=== PATIENT | female | born 1970 | race Caucasian/White ===

== ENCOUNTER 2016-04-01 19:01 | Emergency (ER) | payer BC ==
[2016-04-01 19:17] VITALS: PULSE 89; RESP 20; TEMP 98.2
[2016-04-01] MEDS ORDERED: PROPARACAINE 0.5% OPHTH DROPS 15 ML BTL BOTH EYES STA (19:30)
--- NOTE | 2016-04-01 19:46 | ED ---
Eye Problem HPI - General Chief complaint: Eye Problems Stated complaint: RT EYE PAIN, SENT BY CLINIC Time Seen by Provider: 04/01/16 19:11 Source: patient, RN notes reviewed Mode of arrival: ambulatory Limitations: no limitations - History of Present Illness Initial comments: Patient is a 45-year-old female presents to the emergency room for evaluation of right eye pressure. Patient states she began having right eye pressure for the past 2 weeks. Patient states she was having blurriness of vision while taking Chantix a few months ago. Patient states she discontinued taking Chantix around [place] time and the blurriness of vision has subsided. Patient states that she continues to have the pressure behind her right eye. Patient denies any changes in vision or pain in her right eye. Patient denies any recent changes in medications. Patient states she takes thyroid medication and hormone medication. Patient does states she has a family history of glaucoma. Patient denies headache, dizziness, ear pain, nausea, vomiting. - Related Data Home Medications Medication Instructions Recorded Confirmed Thyroid,Pork [Nature-Throid] 48.75 mg PO DAILY 05/28/14 04/01/16 ALPRAZolam [Xanax] 0.5 mg PO TID PRN 04/23/15 04/01/16 Aspirin [Adult Low Dose Aspirin EC] 81 mg PO DAILY 04/23/15 04/01/16 Cholecalciferol [Vitamin D3] 5,000 unit PO DAILY 04/23/15 04/01/16 Estradiol [Estradiol] 1 mg PO DAILY 04/23/15 04/01/16 Multivitamins, Thera [Multivitamin] 1 tab PO DAILY 04/23/15 04/01/16 [place]-3 Fatty Acids/Fish Oil [Fish 1 - 2 each PO DAILY 04/23/15 04/01/16 Oil 1,000 mg Softgel] Progesterone,Micronized 100 mg PO DAILY 04/23/15 04/01/16 [Progesterone] Vitamin B Complex 1 each PO DAILY 04/23/15 04/01/16 Vitamin B12 Packet (Unknown Dose) 1 applic PO DAILY 04/23/15 04/01/16 oxyCODONE-APAP 10-325MG [Percocet 1 tab PO QID 04/23/15 04/01/16 10-325 mg] Previous Rx's Medication Instructions Recorded HYDROcodone/APAP 5-325MG [[place] 5] 1 - 2 each PO Q4H PRN #20 tab 04/28/15 Amoxicillin/Potassium Clav 1 each PO Q12HR #20 tab 04/01/16 [Augmentin 875-125 Tablet] Allergies Allergy/AdvReac Type Severity Reaction Status Date / Time No Known Allergies Allergy Verified 04/01/16 19:14 Review of Systems ROS Statement: Those systems with pertinent positive or pertinent negative responses have been documented in the HPI. ROS Other: All systems not noted in ROS Statement are negative. Past Medical History Past Medical History: GERD/Reflux, Hyperlipidemia, Hypertension, Thyroid Disorder Additional Past Medical History / Comment(s): HX STOMACH ULCER, ENDOMETRIOSIS, CONSTIPATION AND DIARRHEA., HAVING ABDOMINAL PAINS History of Any Multi-Drug Resistant Organisms: None Reported Past Surgical History: Bowel Resection, Hysterectomy, Uterine Ablation Additional Past Surgical History / Comment(s): EGD. D & C. LYSIS OF ADHESIONS. BILAT OOPHORECTOMY Past Anesthesia/Blood Transfusion Reactions: No Reported Reaction Additional Past Anesthesia/Blood Transfusion Reaction / Comment(s): MOTHER=PONV Past Psychological History: Anxiety Smoking Status: Current every day smoker Past Alcohol Use History: Occasional Additional Past Alcohol Use History / Comment(s): SMOKES 1PPD. SMOKING FOR 20 YEARS Past Drug Use History: None Reported - Past Family History Mother Family Medical History: No Reported History General Exam - General Exam Comments Initial Comments: Sitting in exam room, no acute distress. Limitations: no limitations General appearance: alert, in no apparent distress Head exam: Present: atraumatic, normocephalic, normal inspection Eye exam: Present: normal appearance, PERRL, EOMI Pupils: Present: normal accommodation Expanded Eyelids: Normal Inspection: Bilateral Pupils: Regular, Round: Bilateral Sclera/Conjunctival: Normal Inspection: Bilateral Visual acuity (R) = 20/: 20 Visual acuity (L) = 20/: 50 IOP (R) in mmH IOP (L) in mmH IOP measured with: [facility] ENT exam: Present: normal exam, mucous membranes moist, TM's normal bilaterally , normal external ear exam, other (Pain/pressure on palpating over right maxillary sinus) Neck exam: Present: normal inspection Respiratory exam: Present: normal lung sounds bilaterally. Absent: respiratory distress Cardiovascular Exam: Present: regular rate, normal rhythm, normal heart sounds Extremities exam: Present: normal inspection Back exam: Present: normal inspection Neurological exam: Present: alert, oriented X3, CN II-XII intact, normal gait Psychiatric exam: Present: normal affect, normal mood Skin exam: Present: warm, dry, intact, normal color. Absent: rash Course Vital Signs 04/01/16 04/01/16 19:14 19:52 Temperature 98.2 F Pulse Rate 89 Respiratory 20 Rate Blood Pressure 195/113 170/100 O2 Sat by Pulse 97 Oximetry Medical Decision Making - Medical Decision Making Patient is a 45-year-old female presents to the emergency room for evaluation of right eye pressure. Patient's IOP with tonometer is within normal limits on bilateral eyes. Patient's pressure more related to sinus pressure. Will place patient on antibiotics for sinusitis. I did advise patient to follow up with finished cloth checker for reevaluation next week. Patient also noted to have increased blood pressure while she was here. Patient declined blood pressure medications. It was explained to patient the increased risk of stroke or heart attack. Patient states she understands and still declined blood pressure medication. Patient states she will follow-up with her primary care provider regarding high blood pressure. Patient states she will return for any concerning symptoms. Case discussed with Dr. Hobbs. Disposition Clinical Impression: Sinus pressure, High blood pressure Disposition: HOME SELF-CARE Condition: Good Instructions: Sinusitis (ED) Additional Instructions: Take antibiotics as directed. Please follow up with finished cloth checker on Monday for reevaluation. Please follow up with primary care provider next week for further evaluation of blood pressure. If any new symptom arises, symptoms worsen or fever develops, return to ER as soon as possible. Prescriptions: Amoxicillin/Potassium Clav [Augmentin 875-125 Tablet] 1 each PO Q12HR #20 tab Referrals: Patrick Haywood MD [Primary Care Provider] - 1-2 days Elsie Duron MD [STAFF PHYSICIAN] - 1-2 days Time of Disposition: 20:14
[2016-04-01 19:52] VITALS: BP 170/100
[2016-04-01] MEDS ORDERED: cloNIDine HCL 0.1 MG TAB PO STA (20:04)
== END 2016-04-01 20:24 | disposition home or self-care (01) ==
LOC: EC 19:01
DX: J32.9 Chronic sinusitis, unspecified (principal); R03.0 Elevated blood-pressure reading, without diagnosis of hypertension; Z83.511 Family history of glaucoma; F17.200 Nicotine dependence, unspecified, uncomplicated; E07.9 Disorder of thyroid, unspecified; F41.9 Anxiety disorder, unspecified; Z79.82 Long term (current) use of aspirin; Z79.899 Other long term (current) drug therapy
CPT/HCPCS: 99283

== ENCOUNTER → 2016-04-05 | Outpatient (CLI) | payer BC ==
[2016-04-05 10:16] LABS: CH 33.1; CHCM 33.2; HCT 49.7 % (34.0-46.0); HDW 2.33; MCH 32.3 pg (25.0-35.0); MCHC 32.3 g/dL (31.0-37.0); MCV 100.2 fL (80.0-100.0); Mean Platelet Volume 7.9; RBC 4.96 m/uL (3.80-5.40); RDW 12.9 % (11.5-15.5); WBC 5.6 k/uL (3.8-10.6)
[2016-04-05 10:46] LABS: ALT 34 U/L (9-52); AST 30 U/L (14-36); Alkaline Phosphatase 43 U/L (38-126); Anion Gap 12 mmol/L; Blood Urea Nitrogen 15 mg/dL (7-17); Calcium 10.1 mg/dL (8.4-10.2); Carbon Dioxide 24 mmol/L (22-30); Chloride 106 mmol/L (98-107); Glucose 102 mg/dL (74-99); Non-African American GFR(MDRD) >60 (>60 ml/min/1.73 sqM); Potassium 4.6 mmol/L (3.5-5.1); Sodium 142 mmol/L (137-145); Total Bilirubin 0.5 mg/dL (0.2-1.3); Total Protein 7.8 g/dL (6.3-8.2)
[2016-04-05 10:58] LABS: Follicle Stimulating Hormone 25.9 mIU/mL; Prolactin 5.4 ng/mL (3.0-18.6)
[2016-04-05 11:14] LABS: Estradiol 82 pg/mL
== END | disposition home or self-care (01) ==
LOC: LABWHC1 09:30
PROVIDERS: ATTEND Internal Medicine Endocrinology, Diabetes & Metabolism
DX: R53.83 Other fatigue (principal); E89.41 Symptomatic postprocedural ovarian failure
CPT/HCPCS: 36415; 80053; 82533; 82670; 83001; 83002; 84146; 84403; 84439; 84443; 85027

== ENCOUNTER → 2016-06-10 | Outpatient (CLI) | payer BC | LOC: LABWHC1 15:51 | PROVIDERS: ATTEND Internal Medicine Endocrinology, Diabetes & Metabolism | DX: R53.83 Other fatigue (principal) | CPT/HCPCS: 36415; 84443 ==